=== PATIENT | male | born 1985 | race Caucasian/White ===

== ENCOUNTER 2025-11-01 09:18 | Outpatient (OUT) | payer OTHER, SELFPAY ==
--- NOTE | 2025-11-01 | XR_ITS ---
The [address] [address] Patient Name: KYLE DODD MRN: [id number] date: 1985 Sex: M Assigned Patient Location: [facility] Current Patient Location: [facility] Accession/Order Number: [id number] Exam Date: 11/01/2025 10:05 Report Date: 11/01/2025 11:07 At the request of: MIRANDA OBRIEN DO Procedure: XR hand RT min 3V RIGHT HAND - 3 views CLINICAL DATA: Right hand pain and history fifth metacarpal fracture COMPARISON: None AP, lateral and oblique views were obtained. There is a comminuted, intra-articular fracture involving the head/neck of the fifth metacarpal. There are no priors to assess for interval change. There is no additional fracture or dislocation. There are no significant soft tissue abnormalities. XR/XR hand RT min 3V IMPRESSION: COMMINUTED FRACTURE AT THE DISTAL FIFTH METACARPAL. CORRELATION WITH PRIOR IS SUGGESTED TO ASSESS FOR ANY INTERVAL CHANGE. Impression dictated by: Mikaela Mclain M.D. 11/01/2025 11:07 AM Dictation Location: [place] [address] Electronically authenticated by: [id number] Y Date: 11/01/2025 11:07
== END 2025-11-01 09:19 | disposition home or self-care (01) ==
LOC: RAD 09:18
PROVIDERS: PCP Family Medicine; Visit Provider Orthopaedic Surgery Orthopaedic Trauma
DX: S62.306A Unspecified fracture of fifth metacarpal bone, right hand, initial encounter for closed fracture (principal)
CPT/HCPCS: 73130